=== PATIENT | male | born 1990 | race Caucasian/White ===

== ENCOUNTER 2020-04-28 03:55 | Emergency (ER) | payer BC, MEDICAID ==
[2020-04-28 04:19] VITALS: BP 112/74; PULSE 101
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
== END 2020-04-28 07:50 | disposition home or self-care (01) ==
LOC: JD.ED 03:55
DX: S51.811A Laceration without foreign body of right forearm, initial encounter (principal); F17.210 Nicotine dependence, cigarettes, uncomplicated; W25.XXXA Contact with sharp glass, initial encounter
CPT/HCPCS: 12002; 99282

== ENCOUNTER 2021-01-13 13:13 | Emergency (ER) | payer SELFPAY ==
[2021-01-13 13:23] VITALS: PULSE 117
--- NOTE | 2021-01-13 14:18 | CT ---
Head CT Technique: Multiple axial sections through the brain were obtained. Intravenous contrast was not utilized. Reconstructed coronal and sagittal images were obtained. Comparison: No prior intracranial imaging is available. Findings: Ventricles along with basal cisterns and sulci over the convexities are within normal limits for the patient's age. No abnormal parenchymal densities are seen. No evidence of intracranial hemorrhage. No midline shift or mass-effect is appreciated. There is a small amount of air within the posterior scalp presumably from previous injury which shows mild soft tissue swelling. Bone window settings were reviewed which show no acute calvarial abnormality. Visualized mastoid sinuses and paranasal sinuses show nothing acute. Impression: 1. Small amount of air and soft tissue swelling within the posterior right scalp. 2. No acute intracranial abnormality is appreciated. Diagnostic code #2
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
[2021-01-13] MEDS ORDERED: Acetaminophen 325 MG Tab PO ONE (14:51)
[2021-01-13] MEDS ORDERED: Cephalexin 500 MG Cap PO ONE (14:52)
[2021-01-13 15:20] VITALS: BP 126/84
== END 2021-01-13 15:17 ==
LOC: JD.ED 13:13
DX: S06.0X0A Concussion without loss of consciousness, initial encounter (principal); S01.01XA Laceration without foreign body of scalp, initial encounter; Z72.0 Tobacco use; W22.8XXA Striking against or struck by other objects, initial encounter
CPT/HCPCS: 70450; 99284; A9270; 99283

== ENCOUNTER 2025-06-16 09:30 | Emergency (ER) | payer BC, OTHER ==
[2025-06-16] MEDS ORDERED: Sodium Chloride 0.9% 10 ML Syringe FLUSH PRN (11:33)
[2025-06-16] MEDS ORDERED: Iopamidol 755 Mg/ML 100 ML Bottle IVPUSH ONE (11:33)
[2025-06-16] MEDS: Sodium Chloride 0.9% 10 ML Syringe FLUSH PRN (11:40)
[2025-06-16 17:37] VITALS: BP 112/67; PULSE 67
== END 2025-06-16 15:15 | disposition home or self-care (01) ==
LOC: JD.ED 09:30
DX: S12.091A Other nondisplaced fracture of first cervical vertebra, initial encounter for closed fracture (principal); S43.401A Unspecified sprain of right shoulder joint, initial encounter; S70.12XA Contusion of left thigh, initial encounter; F17.210 Nicotine dependence, cigarettes, uncomplicated; Z79.899 Other long term (current) drug therapy; V29.008A Other motorcycle driver injured in collision with unspecified motor vehicles in nontraffic accident, initial encounter; Y93.89 Activity, other specified
CPT/HCPCS: 70450; 70450-26; 70498; 70498-26; 71046; 71046-26; 72125; 72125-26; 73030-26-RT; 73030-RT; 73552-26-LT; 73552-LT; 96374; 99284; 99284-25; J1171